=== PATIENT | female | born 1950 | race Caucasian/White ===

== ENCOUNTER → 2016-12-10 | Outpatient (CLI) | payer MEDICARE, OTHER ==
--- NOTE | 2016-12-10 14:02 | MAM ---
History: Well woman exam. Date of exam: 12/10/2016 Services provided: Bilateral full field digital screening mammography. CAD, the images were reviewed with R2 computer aided detection. FINDINGS: Glandular tissue is scattered glandular contour with increased mammographic density. Comparison with 2012 exam. No dominant mass, architectural distortion or clustered microcalcification. IMPRESSION: Benign exam Recommendation: Routine annual mammography BIRAD CATEGORY: 2 BENIGN Electronically signed by: Arleen Hawley MD 12/10/2016 2:02 PM CDT Workstation: [id number]
== END | disposition home or self-care (01) ==
LOC: MAMMO 11:17
PROVIDERS: ATTEND Nurse Practitioner Family
DX: Z12.31 Encounter for screening mammogram for malignant neoplasm of breast (principal)

== ENCOUNTER → 2017-06-01 | Outpatient (CLI) | payer MEDICARE, OTHER | END | disposition home or self-care (01) | LOC: GMAB 13:12 | PROVIDERS: ATTEND Family Medicine | DX: R10.13 Epigastric pain (principal) ==

== ENCOUNTER → 2017-12-29 | Outpatient (CLI) | payer MEDICARE, OTHER ==
--- NOTE | 2017-12-31 15:51 | MAM ---
EXAM DESCRIPTION: 3D Screening BILATERAL : Digital Mammography. CLINICAL HISTORY: 67 years Female SCREENING . No complaints. No family history of breast cancer. Childbirth. Postmenopausal. Currently on HRT. COMPARISON: 2-D digital screening bilateral study 12/10/2016. Report from prior examination also reviewed. TECHNIQUE: Bilateral CC and MLO projection full-field images, 3-D tomosynthesis digital mammographic technique. CAD not utilized. FINDINGS: The breast parenchymal density pattern is: Scattered areas of fibroglandular density. No skin thickening or nipple retraction. Bilateral solitary microcalcifications. Bilateral vascular calcifications. Focal asymmetry in the anterior third of the lateral right breast at the 900 clock position. Not associated with microcalcifications. Approximately 5 cm from the nipple. There is change in the architecture at that region since the prior study. No new focal, stellate mass or density, focal Asymmetry , and no suspicious microcalcifications left breast. IMPRESSION: BI-RADS CATEGORY: 0 - INCOMPLETE- Need additional imaging evaluation. FOLLOW-UP: Recall for additional imaging: Bilateral 3-D tomosynthesis full field LM images. Spot compression 2-D digital CC projection. Follow-up with targeted right breast ultrasound if indicated by diagnostic images.. Written communication concerning the IMPRESSION and Follow-up, will be mailed to the patient and referring health care provider. Electronically signed by: Chapo Pendleton MD 12/31/2017 3:50 PM CDT
== END ==
LOC: MAMMO 13:30
PROVIDERS: ATTEND Nurse Practitioner Family
DX: Z12.31 Encounter for screening mammogram for malignant neoplasm of breast (principal)

== ENCOUNTER → 2018-01-06 | Outpatient (CLI) | payer MEDICARE, OTHER ==
--- NOTE | 2018-01-06 17:21 | US ---
EXAM DESCRIPTION: Breast,Right: Ultrasound CLINICAL HISTORY: 67 yearsFemaleABN SCREEN. Focal asymmetry lateral right breast. COMPARISON: Digital 2-D/3-D diagnostic mammography bilateral on this visit. 3-D screening bilateral study 12/29/2017. TECHNIQUE: Transcutaneous scanning of the right breast utilizing browning-scale and Doppler modes. Scanning performed by the triage specialist and Dr. Pendleton. FINDINGS: Scanning of the right breast from the 900-1000 clock position, 5 cm from the nipple, to the nipple. Heterogeneous fibroglandular and fatty echotexture. No distinct solid mass or cyst. No large calcifications or parenchymal edema. No overlying skin changes. Normal vascularity. IMPRESSION: 1. Bi-Rads Category 2: Benign. 2. Please refer to bilateral 2-D and 3-D diagnostic digital mammographic examination and report on this visit. The FINDINGS and the FOLLOW-UP plan were reviewed in person with the patient after the examination. Written communication explaining the IMPRESSION and FOLLOW-UP will be mailed to the patient and referring care provider. Electronically signed by: Chapo Pendleton MD 01/06/2018 5:19 PM CDT
--- NOTE | 2018-01-10 08:38 | MAM ---
EXAM DESCRIPTION: 3D Diagnostic, Bilateral: Digital Mammography CLINICAL HISTORY: 67 yearsFemaleABNORMAL SCREEN focal asymmetry anterior right breast on screening study.. Previous bilateral mammopexy. COMPARISON: Bilateral 3-D tomosynthesis screening mammography 12/29/2017.. Targeted right breast ultrasound following this examination. Report from prior examination also reviewed. TECHNIQUE: Bilateral CC LM projection full-field images, 3-D tomosynthesis digital mammographic technique. CAD not utilized. FINDINGS: The breast parenchymal density pattern is: Scattered areas of fibroglandular density. No skin thickening or nipple retraction solitary microcalcifications. The region of focal asymmetry is not as prominent on the LM 3-D tomosynthesis images. No new focal, stellate mass or density, , and no suspicious microcalcifications right breast. ULTRASOUND: Scanning of the right breast from the 900-1000 clock position, 5 cm from the nipple, to the nipple. Heterogeneous fibroglandular and fatty echotexture. No distinct solid mass or cyst. No large calcifications or parenchymal edema. No overlying skin changes. Normal vascularity. IMPRESSION: BI-RADS CATEGORY: 2 - BENIGN FINDINGS. FOLLOW UP: Return to routine digital bilateral screening, one year interval from December 2017. The FINDINGS and the FOLLOW-UP plan were reviewed in person with the patient after the examination. Written communication explaining the IMPRESSION and FOLLOW-UP will be mailed to the patient and referring care provider. According to the [employer], yearly mammograms are recommended starting at age 40 and continuing as long as a woman is in good health. Any breast change noted on a breast self-exam should be reported promptly to the patient's healthcare provider. Breast MRI is recommended for women with an approximately 20-25% or greater lifetime risk of breast cancer, including women with a strong family history of breast or ovarian cancer and women who have been treated for Hodgkin's disease. A negative mammographic report should not delay tissue diagnosis in patients with significant clinical history or physical findings. Extremely dense breast tissue limits the sensitivity of digital mammography. Electronically signed by: Chapo Pendleton MD 01/10/2018 8:37 AM CDT
== END ==
LOC: MAMMO 10:16
PROVIDERS: ATTEND Family Medicine
DX: R92.2 Inconclusive mammogram (principal)
CPT/HCPCS: 76641; 77066; G0279

== ENCOUNTER 2018-10-24 06:06 | Day surgery (SDC) | payer MEDICARE, OTHER ==
[2018-10-24] MEDS ORDERED: PROPARACAINE 0.5% OPHTH SOL 15 ML BTTL RIGHT_EYE ONE (12:30)
[2018-10-24] MEDS ORDERED: MIDAZOLAM INJ 2 MG/2 ML VIAL ONE (13:27)
[2018-10-24] MEDS ORDERED: LIDOCAINE 1% 2 ML VIAL INJ ONE (13:30)
[2018-10-24] MEDS ORDERED: MOXIFLOXACIN HCL (OPHTH) 1 DROP DROPS RIGHT_EYE ONE (13:53)
[2018-10-24] MEDS ORDERED: TOBRAMYCIN SULF 0.3 % OPHT SOL 1 DROP RIGHT_EYE ONE (13:54)
[2018-10-24] MEDS ORDERED: BRIMONIDINE 0.2% OPHTH DROPS RIGHT_EYE ONE (13:54)
[2018-10-24] MEDS ORDERED: DEXAMETHASONE 0.1% OPHTH SOL 1 DROP RIGHT_EYE ONE (13:54)
== END 2018-10-24 14:40 | disposition home or self-care (01) ==
LOC: AMB 06:06
PROVIDERS: ATTEND Ophthalmology
DX: H25.11 Age-related nuclear cataract, right eye (principal); I10 Essential (primary) hypertension; Z79.899 Other long term (current) drug therapy
CPT/HCPCS: 00142; 66984; J2250

== ENCOUNTER 2018-11-07 05:30 | Day surgery (SDC) | payer MEDICARE, OTHER ==
[2018-11-07] MEDS ORDERED: MIDAZOLAM INJ 2 MG/2 ML VIAL ONE (08:49)
[2018-11-07] MEDS ORDERED: PROPARACAINE 0.5% OPHTH SOL 15 ML BTTL LEFT_EYE ONE (08:50)
[2018-11-07] MEDS ORDERED: LIDOCAINE 1% 2 ML VIAL INJ ONE (09:04)
[2018-11-07] MEDS ORDERED: MOXIFLOXACIN HCL (OPHTH) 1 DROP DROPS LEFT_EYE ONE (09:15)
[2018-11-07] MEDS ORDERED: DEXAMETHASONE 0.1% OPHTH SOL 1 DROP LEFT_EYE ONE (09:17)
[2018-11-07] MEDS ORDERED: BRIMONIDINE 0.2% OPHTH DROPS LEFT_EYE ONE (09:17)
[2018-11-07] MEDS ORDERED: TOBRAMYCIN SULF 0.3 % OPHT SOL 1 DROP LEFT_EYE ONE (09:17)
== END 2018-11-07 09:50 | disposition home or self-care (01) ==
LOC: AMB 05:30
PROVIDERS: ATTEND Ophthalmology
DX: H25.12 Age-related nuclear cataract, left eye (principal); I10 Essential (primary) hypertension; Z79.899 Other long term (current) drug therapy
CPT/HCPCS: 00142; 66984; J2250

== ENCOUNTER → 2019-03-07 | Outpatient (CLI) | payer MEDICARE, OTHER ==
--- NOTE | 2019-03-09 08:16 | MAM ---
EXAM DESCRIPTION: 3D Screening BILATERAL : Digital Mammography. CLINICAL HISTORY: 68 years Female Screening . No complaints. No personal or family history of breast cancer. Childbirth. Postmenopausal 15+ years. HRT less than 5 years ago. Bilateral breast reduction. Lifetime risk of developing breast cancer (Tyrer-Cuzick model)(%): 7.9. COMPARISON: Bilateral screening digital breast tomosynthesis 12/29/2017. Right breast ultrasound and diagnostic breast tomosynthesis 01/06/2018. TECHNIQUE: Bilateral CC and MLO projection full-field images, digital tomosynthesis mammographic technique. Bilateral digital 2-D full-field MLO images. CAD not available for tomosynthesis or 2-D images. FINDINGS: The breast parenchymal density pattern is: Scattered areas of fibroglandular density. No skin thickening or nipple retraction. Bilateral axillary lymph nodes. Bilateral solitary microcalcifications. Bilateral vascular calcifications. Focal asymmetry again noted in the upper outer quadrant of the mid right breast is stable. No new focal, stellate mass or density, focal asymmetry , and no suspicious microcalcifications bilaterally. Stable mammograms compared to prior study. IMPRESSION: Benign exam. BIRAD CATEGORY: 2 BENIGN FINDINGS. RECOMMENDATIONS: FOLLOW UP: Routine digital bilateral mammographic screening, one year interval from March 2019. Written communication explaining the IMPRESSION and follow-up, will be mailed to the patient and referring health care provider. According to the [employer], yearly mammograms are recommended starting at age 40 and continuing as long as a woman is in good health. Any breast change noted on a breast self-exam should be reported promptly to the patient's healthcare provider. Breast MRI is recommended for women with an approximately 20-25% or greater lifetime risk of breast cancer, including women with a strong family history of breast or ovarian cancer and women who have been treated for Hodgkin's disease. A negative mammographic report should not delay tissue diagnosis in patients with significant clinical history or physical findings. Extremely dense breast tissue limits the sensitivity of digital mammography. Electronically signed by: Chapo Pendleton MD 03/09/2019 8:15 AM CDT
== END ==
LOC: MAMMO 13:00
PROVIDERS: ATTEND Nurse Practitioner Family
DX: Z12.31 Encounter for screening mammogram for malignant neoplasm of breast (principal)

== ENCOUNTER → 2019-08-16 | Outpatient (CLI) | payer MEDICARE, OTHER | LOC: GMAHI 13:46 | PROVIDERS: ATTEND Nurse Practitioner Family | DX: R07.2 Precordial pain (principal) ==

== ENCOUNTER → 2020-04-02 | Outpatient (CLI) | payer MEDICARE, OTHER ==
--- NOTE | 2020-04-03 16:56 | MAM ---
EXAM DESCRIPTION: 3D Screening BILATERAL : Digital Mammography. CLINICAL HISTORY: 69 years Female ANNUAL SCREENING . No complaints. No personal or family history of breast cancer. Menarche age 13. Childbirth age 33. Menopause age 51. Currently on HRT. Lifetime risk of developing breast cancer (Tyrer-Cuzick model)(%): 7.6. COMPARISON: Bilateral screening digital breast tomosynthesis December 2017 and March 2019. Diagnostic right breast tomosynthesis and ultrasound January 2018. TECHNIQUE: Bilateral CC and MLO projection full-field images, digital tomosynthesis mammographic technique. Bilateral digital 2-D full-field MLO images. CAD available for 2-D images. FINDINGS: The breast parenchymal density pattern is: Scattered areas of fibroglandular density. No skin thickening or nipple retraction. No new focal, stellate mass or density, focal asymmetry , and no suspicious microcalcifications laterally. Stable mammograms compared to prior study. IMPRESSION: No suspicious or significant imaging findings. BI-RADS CATEGORY: 1 - NEGATIVE RECOMMENDATIONS: FOLLOW UP: Routine digital bilateral screening, one year interval from March 2020. Written communication explaining the findings and follow-up, will be mailed to the patient and referring health care provider. According to the [employer], yearly mammograms are recommended starting at age 40 and continuing as long as a woman is in good health. Any breast change noted on a breast self-exam should be reported promptly to the patient's healthcare provider. Breast MRI is recommended for women with an approximately 20-25% or greater lifetime risk of breast cancer, including women with a strong family history of breast or ovarian cancer and women who have been treated for Hodgkin's disease. A negative mammographic report should not delay tissue diagnosis in patients with significant clinical history or physical findings. Extremely dense breast tissue limits the sensitivity of digital mammography. The region of interest should be followed on clinical grounds and if noted to change in size or character, a directed follow-up ultrasound examination may be performed. Electronically signed by: Chapo Pendleton MD 04/03/2020 4:54 PM CDT
== END ==
LOC: MAMMO 14:30
PROVIDERS: ATTEND Nurse Practitioner Family
DX: Z12.31 Encounter for screening mammogram for malignant neoplasm of breast (principal)